=== PATIENT | male | born 1995 | race Caucasian/White ===

== ENCOUNTER 2022-07-24 21:21 | Emergency (ER) | payer SELFPAY ==
--- NOTE | 2022-07-24 21:26 | XRR_ITS ---
PROCEDURE INFORMATION: Exam: XR Chest Exam date and time: 07/24/2022 9:33 PM Age: 26 years old Clinical indication: Cough and shortness of breath TECHNIQUE: Imaging protocol: Radiologic exam of the chest. Views: 1 view. COMPARISON: No relevant prior studies available. FINDINGS: Lungs: Unremarkable. No consolidation. Pleural spaces: Unremarkable. No pleural effusion. No pneumothorax. Heart/Mediastinum: Unremarkable. No cardiomegaly. Bones/joints: Unremarkable. XR/XR chest 1V portable [id number] IMPRESSION: No acute findings.
[2022-07-24 22:47] VITALS: BP 145/71; PULSE 77; RESP 18; TEMP 37.2; O2SAT 98; BMI 26.6
--- NOTE | 2022-07-25 02:25 | W.ED.GENADLT ---
Documented by User: JACKSON Rodriguez 07/26/22 07:09 HPI - General Adult General: Chief complaint: General Medical Stated complaint: sore throat, n/v, coughing up blood Time Seen by Provider: 07/25/22 02:01 Source: patient Mode of arrival: ambulatory Limitations: no limitations History of Present Illness: Patient is a 26-year-old male who presents to ED today with a complaint of cough, sore throat, body aches, and feeling like I am going to x 2 days. He states he has been coughing up phlegm/mucus and today noticed a small amount of bright red blood. Patient states he is not sure if he is running fevers but believes he had a fever in triage (99.0). Had two episodes of vomiting today. No abdominal pain or diarrhea. No sick contacts. Onset (ago): day(s) Pain Consistency: constant Relieving factors: none Exacerbating factors: other (swallowing/coughing) Associated symptoms: Reports nausea and vomiting; Deny chest pain, confusion, dyspnea, headache(s), rash, palpitations or syncope Treatments prior to arrival: none Review of Systems Const: Reports: fever(s), chills and body aches Eyes: Denies: change in vision, blurry vision, photophobia, floaters or seeing flashes ENMT: Reports: throat pain and odynophagia; Denies: ear or mastoid pain, ear discharge, nasal discharge, nasal congestion, post nasal drip or sinus pain Card: Denies: chest pain, palpitations, irregular heart rhythm, edema, swelling of feet/ankles, lightheadedness, syncope, pre-syncope, dyspnea on exertion, orthopnea, leg pain with exertion or acrocyanosis Resp: Reports: productive cough, hemoptysis and chest congestion; Denies: dyspnea, non-productive cough, wheezing, stridor, pain on inspiration or change in phlegm color GI: Reports: nausea and vomiting; Denies: abdominal pain, hematemesis, diarrhea or change in bowel habits : Denies: flank pain, dysuria or hematuria Musc: Denies: neck pain, back pain, extremity pain or joint pain Skin/Breast: Denies: rash Neuro: Denies: headache(s), numbness in extremities, weakness in extremities, sensory changes, difficulty walking, dizziness, confusion, behavioral changes or seizure-like activity Physical Exam Const: COMMON NORMALS: average body habitus, patient oriented x3, no limitations, healthy appearing, alert and well nourished GENERAL APPEARANCE: cooperative and ill appearing (mildly-non toxic) ORIENTATION/CONSCIOUSNESS: Yes awake, Yes oriented to person, Yes oriented to place and Yes oriented to time HENMT: COMMON NORMALS: normocephalic, atraumatic, TM's normal bilaterally and Normal external nose present HEAD & SCALP: normal to inspection, normocephalic and atraumatic FACE & SINUS: normal facial exam NOSE: Normal external nose present TYMPANIC MEMBRANE: TM's normal bilaterally MOUTH: Normal oral and palatal mucosa present, lip normal and tongue normal THROAT: posterior oropharynx normal, uvula midline and abnormal tonsil bilateral hypertrophy; no peritonsillar mass Eye: GENERAL EYE: appearance normal, both eyes and all related structures Neck/C-Spine: COMMON NORMALS: full ROM, no lymphadenopathy and no meningeal signs GENERAL: Yes normal visual inspection Resp: COMMON NORMALS: normal respiratory effort and clear to auscultation bilaterally AUSCULTATION: clear to auscultation bilaterally Cardio: COMMON NORMALS: regular rate and regular rhythm RATE: regular rate RHYTHM: regular rhythm GI: COMMON NORMALS: Normal to inspection, nondistended, normoactive bowel sounds present, Soft to palpation and non-tender PALPATION: Yes Soft to palpation : COMMON NORMALS: Yes no CVA tenderness BLADDER/KIDNEY EXAM: Yes no CVA tenderness Back/Pelvis: COMMON NORMALS: no CVA tenderness, thoracic and lumbar spine normal to inspection, no thoracic nor lumbar tenderness and thoraco-lumbar ROM normal Extremity: COMMON NORMALS: normal to inspection GENERAL: Yes normal exam except as noted Neuro: SALEEM COMA SCALE: document GCS findings Spicer coma scale eye opening: Spontaneous Spicer coma scale verbal response: Orientated Saleem coma scale motor response: Obey commands Saleem coma scale total score: 15 COMMON NORMALS: patient oriented x3, moves all extremities, no focal motor deficits, no sensory deficits noted and gait normal SENSORIUM/ORIENTATION: Yes alert, Yes oriented to person, Yes oriented to place and Yes oriented to time MENINGEAL SIGNS: Yes no meningeal signs Skin: COMMON NORMALS: no rashes or lesions noted GENERAL SKIN EXAM: no rashes or lesions noted Course Vital Signs: Vital signs: Vital Signs Temperature 99 F 07/24/22 22:47 Pulse Rate 89 07/25/22 04:15 Respiratory Rate 18 07/25/22 04:15 Blood Pressure 132/84 07/25/22 04:15 Pulse Oximetry 97 07/25/22 04:15 Oxygen Delivery Me thod 07/25/22 02:55 MDM - General Adult Medical Decision Making Care transferred to Dr. Sierra at shift change ES Lab Data 07/25/22 02:27 07/25/22 02:27 Radiology Impressions Chest X-Ray 07/24/22 21:26 IMPRESSION: No acute findings. Laboratory Results WBC 14.2 10^3/uL (4.0-10.0) H 07/25/22 02:27 RBC 4.95 10^6/uL (4.1-5.3) 07/25/22 02:27 Hgb 14.7 g/dL (11.7-16.6) 07/25/22 02:27 Hct 43.7 % (42.0-52.0) 07/25/22 02:27 MCV 88.3 fl (80-94) 07/25/22 02:27 MCH 29.7 pg (28.0-34.0) 07/25/22 02:27 MCHC 33.6 g/dL (30.0-36.0) 07/25/22 02:27 RDW 12.1 % (12.1-15.1) 07/25/22 02:27 Plt Count 210 10^3/cmm (130-400) 07/25/22 02:27 MPV 9.4 fL (7.4-10.4) 07/25/22 02:27 Neut % (Auto) 79.8 % 07/25/22 02:27 Lymph % (Auto) 10.4 % 07/25/22 02:27 [place] % (Auto) 9.0 % 07/25/22 02:27 Eos % (Auto) 0.3 % 07/25/22 02:27 Baso % (Auto) 0.1 % 07/25/22 02:27 Neut # (Auto) 11.31 10^3/uL (1.8-7.7) H 07/25/22 02:27 Lymph # (Auto) 1.5 10^3/uL (0.8-4.8) 07/25/22 02:27 [place] # (Auto) 1.3 10^3/uL (0.2-0.9) H 07/25/22 02:27 Eos # (Auto) 0.0 10^3/uL (0.0-0.8) 07/25/22 02:27 Baso # (Auto) 0.0 10^3/uL (0.0-0.1) 07/25/22 02:27 Nucleated RBC % (auto) 0 % 07/25/22 02:27 Nucleated RBCs # 0.0 /100WBC 07/25/22 02:27 Sodium 138 mmol/L (136-145) 07/25/22 02:47 Potassium 4.4 mmol/L (3.5-5.1) 07/25/22 02:47 Chloride 102 mmol/L (98-107) 07/25/22 02:47 Carbon Dioxide 26 mmol/L (22-29) 07/25/22 02:47 Anion Gap 14.4 (5-19) 07/25/22 02:47 BUN 16 mg/dL (6-20) 07/25/22 02:47 Creatinine 0.8 mg/dL (0.7-1.2) 07/25/22 02:47 GFR Calculation 117.8 mL/min (90-130) 07/25/22 02:47 Glucose 127 mg/dL (65-115) H 07/25/22 02:47 Calculated Osmolality 289 mOsm/kg (285-295) 07/25/22 02:47 Calcium 8.8 mg/dL (8.5-10.5) 07/25/22 02:47 Total Bilirubin 0.3 mg/dL (0.15-1.2) 07/25/22 02:47 AST 12 U/L (0-40) 07/25/22 02:47 ALT 14 U/L (0-41) 07/25/22 02:47 Alkaline Phosphatase 83 U/L (40-130) 07/25/22 02:47 Total Protein 7.4 g/dL (6.6-8.7) 07/25/22 02:47 Albumin 4.4 g/dL (3.5-5.2) 07/25/22 02:47 Globulin 3.0 g/dL (1.3-4.6) 07/25/22 02:47 Influenza Type A Ag negative (Negative) 07/25/22 03:23 Influenza Type B Ag negative (Negative) 07/25/22 03:23 SARS-CoV-2 Ag (Rapid) negative (Negative) 07/25/22 03:23 Group A Strep Rapid Negative (Negative) 07/25/22 03:23 Discharge Plan Discharge Patient Disposition: Home Clinical Impression: Bronchitis Condition: Stable Prescriptions: New albuterol sulfate 90 mcg/actuation HFA aerosol inhaler 2 inh INHALATION Q4H PRN (Reason: shortness of breath or wheezing) Qty: 6.7 0RF Medrol ([place]) 4 mg tablets,dose pack See Rx Instructions .ROUTE .COMPLEX Qty: 21 0RF Rx Instructions: orally per package directions amoxicillin-pot clavulanate 875-125 mg tablet 1 tab PO BID Qty: 14 0RF Discharge Orders: Discharge ED (Routine); Ordered 07/25/22 Ordered By: Bryant Sierra Discharge Diet: Usual diet Discharge Activity: Increase activity as tolerated Patient Instructions: Acute Bronchitis (ED) Activity Restrictions/Additional Instructions: Thank you for visiting the emergency department. You were seen and evaluated for generalized illness. The most likely cause of your symptoms is bronchitis which will be treated. You may use [id number] medications such as acetaminophen and ibuprofen for pain however please do not exceed the daily recommended dosage as listed on the packaging and please keep in mind that many namebrand medications contain the same active ingredients. Please avoid these medications if previously instructed to do so by another physician due to other underlying medical condition. Please ensure that you are staying hydrated. Please follow-up with your primary care provider. Return to the emergency department for uncontrolled symptoms or anything else that you are concerned about a feel needs emergency department evaluation. Sign Out Sign Out Data: Patient Sign Out occurred on 07/25/22 at 03:13. Patient's care was discussed, and care was transferred from to Bryant Sierra MD. Coding Level of Care Code ED [facility]eguard for Chg Fwd Exam Comprehensive Documented by User: Bryant Sierra MD 07/30/22 07:53 HPI - General Adult General: Chief complaint: General Medical Stated complaint: sore throat, n/v, coughing up blood Time Seen by Provider: 07/25/22 02:01 Physical Exam Neuro: SALEEM COMA SCALE: document GCS findings Spicer coma scale total score: 15 Course Vital Signs: Vital signs: Vital Signs Temperature 99 F 07/24/22 22:47 Pulse Rate 89 07/25/22 04:15 Respiratory Rate 18 07/25/22 04:15 Blood Pressure 132/84 07/25/22 04:15 Pulse Oximetry 97 07/25/22 04:15 Oxygen Delivery Me thod 07/25/22 02:55 MDM - General Adult Medical Decision Making Care transferred to Dr. Sierra at shift change ES Patient care discussed with Ruthann PAZ. Care handoff received pending completion of ED evaluation. Labs with leukocytosis, normal hemoglobin. No significant metabolic derangements. Rapid viral studies and strep negative. Chest x-ray no lobar consolidation or pneumothorax. On reassessment patient feels improved. Most likely etiology of symptoms is bronchitis which will be treated. The results of ED evaluation were discussed with the patient including prescriptions and/or symptomatic cares (if applicable) including appropriate and responsible use, followup plan, and return precautions. The patient verbalized understanding and felt safe for discharge. Lab Data 07/25/22 02:27 07/25/22 02:27 Radiology Impressions Chest X-Ray 07/24/22 21:26 IMPRESSION: No acute findings. Laboratory Results WBC 14.2 10^3/uL (4.0-10.0) H 07/25/22 02:27 RBC 4.95 10^6/uL (4.1-5.3) 07/25/22 02:27 Hgb 14.7 g/dL (11.7-16.6) 07/25/22 02:27 Hct 43.7 % (42.0-52.0) 07/25/22 02:27 MCV 88.3 fl (80-94) 07/25/22 02:27 MCH 29.7 pg (28.0-34.0) 07/25/22 02:27 MCHC 33.6 g/dL (30.0-36.0) 07/25/22 02:27 RDW 12.1 % (12.1-15.1) 07/25/22 02:27 Plt Count 210 10^3/cmm (130-400) 07/25/22 02:27 MPV 9.4 fL (7.4-10.4) 07/25/22 02:27 Neut % (Auto) 79.8 % 07/25/22 02:27 Lymph % (Auto) 10.4 % 07/25/22 02:27 Culberson % (Auto) 9.0 % 07/25/22 02:27 Eos % (Auto) 0.3 % 07/25/22 02:27 Baso % (Auto) 0.1 % 07/25/22 02:27 Neut # (Auto) 11.31 10^3/uL (1.8-7.7) H 07/25/22 02:27 Lymph # (Auto) 1.5 10^3/uL (0.8-4.8) 07/25/22 02:27 [place] # (Auto) 1.3 10^3/uL (0.2-0.9) H 07/25/22 02:27 Eos # (Auto) 0.0 10^3/uL (0.0-0.8) 07/25/22 02:27 Baso # (Auto) 0.0 10^3/uL (0.0-0.1) 07/25/22 02:27 Nucleated RBC % (auto) 0 % 07/25/22 02:27 Nucleated RBCs # 0.0 /100WBC 07/25/22 02:27 Sodium 138 mmol/L (136-145) 07/25/22 02:47 Potassium 4.4 mmol/L (3.5-5.1) 07/25/22 02:47 Chloride 102 mmol/L (98-107) 07/25/22 02:47 Carbon Dioxide 26 mmol/L (22-29) 07/25/22 02:47 Anion Gap 14.4 (5-19) 07/25/22 02:47 BUN 16 mg/dL (6-20) 07/25/22 02:47 Creatinine 0.8 mg/dL (0.7-1.2) 07/25/22 02:47 GFR Calculation 117.8 mL/min (90-130) 07/25/22 02:47 Glucose 127 mg/dL (65-115) H 07/25/22 02:47 Calculated Osmolality 289 mOsm/kg (285-295) 07/25/22 02:47 Calcium 8.8 mg/dL (8.5-10.5) 07/25/22 02:47 Total Bilirubin 0.3 mg/dL (0.15-1.2) 07/25/22 02:47 AST 12 U/L (0-40) 07/25/22 02:47 ALT 14 U/L (0-41) 07/25/22 02:47 Alkaline Phosphatase 83 U/L (40-130) 07/25/22 02:47 Total Protein 7.4 g/dL (6.6-8.7) 07/25/22 02:47 Albumin 4.4 g/dL (3.5-5.2) 07/25/22 02:47 Globulin 3.0 g/dL (1.3-4.6) 07/25/22 02:47 Influenza Type A Ag negative (Negative) 07/25/22 03:23 Influenza Type B Ag negative (Negative) 07/25/22 03:23 SARS-CoV-2 Ag (Rapid) negative (Negative) 07/25/22 03:23 Group A Strep Rapid Negative (Negative) 07/25/22 03:23 Discharge Plan Discharge Patient Disposition: Home Clinical Impression: Bronchitis Condition: Stable Prescriptions: New albuterol sulfate 90 mcg/actuation HFA aerosol inhaler 2 inh INHALATION Q4H PRN (Reason: shortness of breath or wheezing) Qty: 6.7 0RF Medrol ([place]) 4 mg tablets,dose pack See Rx Instructions .ROUTE .COMPLEX Qty: 21 0RF Rx Instructions: orally per package directions amoxicillin-pot clavulanate 875-125 mg tablet 1 tab PO BID Qty: 14 0RF Discharge Orders: Discharge ED (Routine); Ordered 07/25/22 Ordered By: Bryant Sierra Discharge Diet: Usual diet Discharge Activity: Increase activity as tolerated Patient Instructions: Acute Bronchitis (ED) Activity Restrictions/Additional Instructions: Thank you for visiting the emergency department. You were seen and evaluated for generalized illness. The most likely cause of your symptoms is bronchitis which will be treated. You may use pfao-zku-qjeavoc medications such as acetaminophen and ibuprofen for pain however please do not exceed the daily recommended dosage as listed on the packaging and please keep in mind that many namebrand medications contain the same active ingredients. Please avoid these medications if previously instructed to do so by another physician due to other underlying medical condition. Please ensure that you are staying hydrated. Please follow-up with your primary care provider. Return to the emergency department for uncontrolled symptoms or anything else that you are concerned about a feel needs emergency department evaluation. Sign Out Sign Out Data: Patient Sign Out occurred on 07/25/22 at 03:13. Patient's care was discussed, and care was transferred from to Bryant Sierra MD. Coding Level of Care Code ED [facility] Lifeguard for Saludg Fwd Exam Comprehensive
[2022-07-25 02:30] LABS: Basophils % 0.1 %; Eosinophils % 0.3 %; Hematocrit 43.7 % (42.0-52.0); Hemoglobin 14.7 g/dL (11.7-16.6); Lymphocytes # 1.5 10^3/uL (0.8-4.8); Lymphocytes % 10.4 %; Mean Corpuscular HGB Conc 33.6 g/dL (30.0-36.0); Mean Corpuscular Hemoglobin 29.7 pg (28.0-34.0); Mean Corpuscular Volume 88.3 fl (80-94); Mean Platelet Volume 9.4 fL (7.4-10.4); Monocytes # 1.3 10^3/uL (0.2-0.9); Neutrophils # 11.31 10^3/uL (1.8-7.7); Neutrophils % 79.8 %; Nucleated Red Blood Cells % 0 %; Platelet Count 210 10^3/cmm (130-400); Red Blood Count 4.95 10^6/uL (4.1-5.3); Red Cell Distribution Width 12.1 % (12.1-15.1); White Blood Count 14.2 10^3/uL (4.0-10.0)
[2022-07-25 02:55] VITALS: BP 139/79; PULSE 82; RESP 17; O2SAT 96
[2022-07-25 03:22] LABS: Alanine Aminotransferase 14 U/L (0-41); Albumin Level 4.4 g/dL (3.5-5.2); Alkaline Phosphatase 83 U/L (40-130); Anion Gap 14.4 (5-19); Aspartate Amino Transferase 12 U/L (0-40); Blood Urea Nitrogen 16 mg/dL (6-20); Calcium 8.8 mg/dL (8.5-10.5); Carbon Dioxide 26 mmol/L (22-29); Chloride 102 mmol/L (98-107); Glomerular Filtration Rate 117.8 mL/min (90-130); Glucose 127 mg/dL (65-115); Osmolality Calculated 289 mOsm/kg (285-295); Potassium 4.4 mmol/L (3.5-5.1); Sodium 138 mmol/L (136-145); Total Bilirubin 0.3 mg/dL (0.15-1.2); Total Protein 7.4 g/dL (6.6-8.7)
[2022-07-25 03:53] LABS: Rapid Strep A Test Negative (Negative)
[2022-07-25 03:57] LABS: Influenza A by IFA negative (Negative); Influenza B by IFA negative (Negative); SARS Covid-2 Antigen negative (Negative)
[2022-07-25 04:15] VITALS: BP 132/84; PULSE 89; RESP 18; O2SAT 97
== END 2022-07-25 04:17 | disposition home or self-care (01) ==
PROVIDERS: Physician Assistant; Emergency Provider Emergency Medicine
DX: J40 Bronchitis, not specified as acute or chronic (principal); Z20.822 Contact with and (suspected) exposure to COVID-19
CPT/HCPCS: 36415; 71045; 80053; 85025; 87081; 87426; 87804; 87880; 99284